=== PATIENT | female | born 1980 | race Caucasian/White ===

== ENCOUNTER 2016-11-26 18:30 | Emergency (ER) | payer BC ==
[2016-11-26 18:35] VITALS: BP 144/86; BMI 32.1
--- NOTE | 2016-11-26 19:09 | DR.GENAD ---
HPI - PCP Primary Care Physician: WILMA - Complaint/Symptoms Chief Complaint Doctors Comments: History as stated. Pain sever, sharp onset one week ago, nont aggravated by movement. Denies history of reflux Chief Complaint:: PT C/O CHEST TIGHTNESS. PT STATES SHE HAS BEEN HAVING CHEST PAINS ON AND OFF FOR A BIT BUT TODAY THE PAIN JUST GOT WORSE - Source History Provided: Patient - Mode of Arrival Mode of Arrival: Ambulatory - Timing Onset of Chief Complaint: 11/26/16 PMH - PMH Past Medical History: No Past Surgical History: Yes Surgical History: Cholecystectomy Past Surgical History Comment: TUBALIGATION - Family History History of Family Medical Conditions: No - Social History Does any household member use tobacco: Yes Alcohol Use: None Do you use any recreational Drugs:: No Lives With: Family Lives Where: Home - infectious screening In the last 2 months have you had wt loss of >10#?: NO Have you had fever, night sweats or hemotysis?: No Have you traveled outside the country in the last 6 months?: No Isolation: Standard ROS - Review of Systems Constitutional: No Symptoms Reported Eyes: No Symptoms Reported ENTM: No Symptoms Reported Respiratoy: No Symptoms Reported Cardiovascular: No Symptoms Reported Gastrointestinal/Abdominal: No Symptoms Reported Genitourinary: No Symptoms Reported Neurological: No Symptoms Reported Musculoskeletal: Chest wall Integumentary: No Symptoms Reported Hematologic/Lymphatic: No Symptoms Reported, See HPI Endocrine: No Symptoms Reported Psychiatric: No Symptoms Reported All Other Systems: Reviewed and Negative PE - Vital Signs Vitals: Temperature 98.3 F Pulse Rate 92 Respiratory Rate 20 Blood Pressure 144/86 O2 Sat by Pulse Oximetry 97 - General Limitations: No Limitations General Appearance: Alert, Anxious - Head Head Exam: Normal Inspection, Atraumatic - Eyes Eye exam: Normal Appearance, PERRL, EOMI - ENT ENT Exam: Normal Exam External Ear Exam: Normal External Inspection TM/Canal Exam: Bilateral Normal Nose Exam: Normal Nose Exam Mouth Exam: Normal Inspection Throat Exam: Normal Inspection - Neck Neck Exam: Normal Inspection, Full ROM - Chest Chest Inspection: Normal Inspection - Respiratory Respiratory Exam: Normal Lung Sounds Bilat Respiratory Exam: Bilateral Clear to Auscultation - Cardiovascular Cardiovascular Exam: Regular Rate, Normal Rhythm - Abdominal Exam Abdominal Exam: Normal Inspection Abdominal Tenderness: negative: RUQ, RLQ, LUQ, LLQ, Epigastrium, Suprapubic, Diffuse, Mild, Moderate, Severe, Other - Extremities Extremities Exam: Normal Inspection, Full ROM - Back Back Exam: Normal Inspection, Full ROM - Neurologic Neurological Exam: Alert, Oriented X3, CN II-XII Intact - Psychiatric Psychiatric Exam: Normal Affect - Skin Skin Exam: Warm, Dry, Intact Course - Reevaluation 1st: Unchanged ROR - Labs Reviewed Result Diagrams: 11/26/16 19:18 11/26/16 19:18 Laboratory: WBC 16.8 X10^3/uL (3.6-10.0) H 11/26/16 19:18 RBC 4.20 X10^6/uL (3.5-5.4) 11/26/16 19:18 Hgb 12.7 g/dL (12.0-16.0) 11/26/16 19:18 Hct 38.8 % (36.0-47.0) 11/26/16 19:18 MCV 92.3 fL (80.0-100.0) 11/26/16 19:18 MCH 30.2 pg (27.0-34.0) 11/26/16 19:18 MCHC 32.8 g/dL (33.0-35.0) L 11/26/16 19:18 RDW 13.8 % (11.6-16.5) 11/26/16 19:18 Plt Count 407 X10^3/uL (150.0-450.0) 11/26/16 19:18 MPV 7.7 fL (7.4-11.0) 11/26/16 19:18 Neut % 77.2 % (42.0-75.0) H 11/26/16 19:18 Lymph % 14.3 % (21.0-51.0) L 11/26/16 19:18 Eddy % 6.6 % (0.0-13.0) 11/26/16 19:18 Eos % 1.2 % (0.9-2.9) 11/26/16 19:18 Baso % 0.7 % (0.2-1.0) 11/26/16 19:18 Neut # 13.0 x10^3/uL (2.2-4.8) H 11/26/16 19:18 Lymph # 2.4 X10^3/uL (1.3-2.9) 11/26/16 19:18 Eddy # 1.1 x10^3/uL (0.3-0.8) H 11/26/16 19:18 Eos # 0.2 x10^3/uL (0.0-0.2) 11/26/16 19:18 Baso # 0.1 X10^3/uL (0.0-0.1) 11/26/16 19:18 Absolute Nucleated RBC 0.0 /100WBC 11/26/16 19:18 Sodium 143 mmol/L (136-145) 11/26/16 19:18 Corrected Sodium TNP 11/26/16 19:18 Potassium 3.7 mmol/L (3.5-5.1) 11/26/16 19:18 Chloride 108 mmol/L (98-107) H 11/26/16 19:18 Carbon Dioxide 24.1 mmol/L (21-32) 11/26/16 19:18 BUN 11 mg/dL (7-18) 11/26/16 19:18 Creatinine 0.79 mg/dL (0.55-1.02) 11/26/16 19:18 Est GFR (MDRD) Af Amer > 60 (>60) 11/26/16 19:18 Est GFR (MDRD) Non-Af > 60 (>60) 11/26/16 19:18 Glucose 96 mg/dL (65-99) 11/26/16 19:18 Calcium 8.6 mg/dL (8.5-10.1) 11/26/16 19:18 Corrected Calcium TNP 11/26/16 19:18 Phosphorus 3.5 mg/dL (2.6-4.7) 11/26/16 19:18 Magnesium 2.0 mg/dL (1.7-2.9) 11/26/16 19:18 Total Bilirubin 0.40 mg/dL (0.2-1.0) 11/26/16 19:18 AST 12 Units/L (15-37) L 11/26/16 19:18 ALT 20 Units/L (12-78) 11/26/16 19:18 Alkaline Phosphatase 84 Units/L (46-116) 11/26/16 19:18 Creatine Kinase 31 Units/L (26-192) 11/26/16 19:18 CK-MB (CK-2) < 1.0 ng/mL (0-4.0) 11/26/16 19:18 CK/CKMB % Calc 3.2 % (<4) 11/26/16 19:18 Troponin I < 0.02 ng/mL (0-1.5) 11/26/16 19:18 C-Reactive Protein 4.60 mg/L (0-3.0) H 11/26/16 19:18 Total Protein 7.1 g/dL (6.4-8.2) 11/26/16 19:18 Albumin 3.6 g/dL (3.4-5.0) 11/26/16 19:18 Globulin 3.5 g/dL (2.5-4.5) 11/26/16 19:18 Albumin/Globulin Ratio 1.0 Ratio (1.1-2.1) L 11/26/16 19:18 H. pylori IgG Antibody Negative (NEGATIVE) 11/26/16 19:18 - XRAY XRAY Interpreted by: Radiologist (Chest: negative) - Diagnosis Discharge Problem: Chest pain Qualifiers: Chest pain type: unspecified Qualified Code(s): R07.9 - Chest pain, unspecified - Discharge Plan Condition: Stable - Follow ups/Referrals Follow ups/Referrals: SUZI DILLON [Primary Care Provider] - 3 days - Instructions
[2016-11-26 19:25] LABS: BASOPHILS # (AUTO) 0.1 X10^3/uL (0.0-0.1); BASOPHILS % (AUTO) 0.7 % (0.2-1.0); EOSINOPHILS # (AUTO) 0.2 x10^3/uL (0.0-0.2); EOSINOPHILS % (AUTO) 1.2 % (0.9-2.9); HEMATOCRIT 38.8 % (36.0-47.0); HEMOGLOBIN 12.7 g/dL (12.0-16.0); LYMPHOCYTES # (AUTO) 2.4 X10^3/uL (1.3-2.9); LYMPHOCYTES % (AUTO) 14.3 % (21.0-51.0); MEAN CORPUSCULAR HEMOGLOBIN 30.2 pg (27.0-34.0); MEAN CORPUSCULAR HGB CONC 32.8 g/dL (33.0-35.0); MEAN CORPUSCULAR VOLUME 92.3 fL (80.0-100.0); MEAN PLATELET VOLUME 7.7 fL (7.4-11.0); MONOCYTES # (AUTO) 1.1 x10^3/uL (0.3-0.8); MONOCYTES % (AUTO) 6.6 % (0.0-13.0); NEUTROPHILS % (AUTO) 77.2 % (42.0-75.0); PLATELET COUNT 407 X10^3/uL (150.0-450.0); RED CELL DISTRIBUTION WIDTH 13.8 % (11.6-16.5); WHITE BLOOD COUNT 16.8 X10^3/uL (3.6-10.0)
[2016-11-26 19:49] LABS: BLOOD UREA NITROGEN 11 mg/dL (7-18); CALCIUM 8.6 mg/dL (8.5-10.1); CARBON DIOXIDE 24.1 mmol/L (21-32); CHLORIDE 108 mmol/L (98-107); CREATININE 0.79 mg/dL (0.55-1.02); GLUCOSE 96 mg/dL (65-99); SODIUM 143 mmol/L (136-145); TROPONIN I < 0.02 ng/mL (0-1.5); eGFR BLACK RACES > 60 (>60); eGFR NON BLACK RACES > 60 (>60)
[2016-11-26 19:53] LABS: ALANINE AMINOTRANSFERASE 20 Units/L (12-78); ALBUMIN 3.6 g/dL (3.4-5.0); ALKALINE PHOSPHATASE 84 Units/L (46-116); ASPARTATE AMINO TRANSFERASE 12 Units/L (15-37); CKMB % 3.2 % (<4); CREATINE KINASE 31 Units/L (26-192); CREATINE KINASE MB < 1.0 ng/mL (0-4.0); PHOSPHORUS 3.5 mg/dL (2.6-4.7); TOTAL PROTEIN 7.1 g/dL (6.4-8.2)
[2016-11-26] MEDS ORDERED: NS 1000 ML 1,000 ML IV SCH (20:00)
--- NOTE | 2016-11-26 20:19 | RAD ---
EXAM: Chest X-ray INDICATION: Chest pain COMPARISION: No prior TECHNIQUE: AP, single view FINDINGS: The lungs are clear in the lung volumes are within normal limits. No pleural effusion or pneumothora x. The cardiac silhouette and mediastinum are normal. The regional skeleton is intact. IMPRESSION: Normal Chest X-Ray Reported By:
[2016-11-26] MEDS ORDERED: NS 1000 ML 1,000 ML ONE (21:05)
== END 2016-11-26 22:19 | disposition home or self-care (01) ==
LOC: ER 18:40
DX: R07.89 Other chest pain (principal)
CPT/HCPCS: 36415; 71010; 80053; 82550; 82553; 83735; 84100; 84484; 85025; 86140; 86677; 93005; 93010; 96365; 99283; A4222

== ENCOUNTER 2017-09-05 04:30 | Inpatient (IN) | payer BC ==
[2017-09-05] MEDS ORDERED: ZOFRAN INJ 4 MG VIAL IVP ONE (05:16)
[2017-09-05] MEDS ORDERED: NS 1000 ML 1,000 ML IV ONE ×2 (05:16→07:35)
[2017-09-05] MEDS ORDERED: PEPCID 20 MG IV PREMIX* 20 MG/50 ML BAG IV ONE ×2 (05:16→05:26)
[2017-09-05] MEDS ORDERED: NS 1000 ML 1,000 ML ONE (05:17)
[2017-09-05] MEDS ORDERED: DEMEROL INJ IVP ONE (05:17)
--- NOTE | 2017-09-05 05:18 | DR.GENAD ---
HPI - PCP Primary Care Physician: nfd - HPI Comment HPI Comment: TONIGHT ANTER MIDNIGHT PAIN STARTED AGAIN. IT WAS MORE SEVERE. NAUSEATED AND VOMITED SEVERAL TIMES. NO FEVER OR DYSURIA. - Complaint/Symptoms Chief Complaint Doctors Comments: EPIGASTRIC PAIN INTERMITTENTLY SINCE LAST MONDAY. Chief Complaint:: pt c/o epigastric pain that radiates under rt breast nausea and vomiting x 3 times - Nurses notes reviewed Nurses Notes Review: Yes - Source History Provided: Patient - Mode of Arrival Mode of Arrival: Ambulatory - Timing Onset of Chief Complaint: 09/04/17 Came on: Suddenly - Duration Duration: Constant (TONIGHT) Duration: Days - Severity Severity: Moderate PMH - PMH Past Medical History: No Past Surgical History: Yes Surgical History: Cholecystectomy, [employer] Surgery Past Surgical History Comment: TUBAL - Family History History of Family Medical Conditions: Yes Family Medical History: Coronary Artery Disease, Heart Failure - Social History Does patient currently use any type of tobacco product: No Have you used tobacco products in the last 12 months: Yes (2 WEEKS) Does any household member use tobacco: No Do you use any recreational Drugs:: No Lives With: Family Lives Where: Home - infectious screening In the last 2 months have you had wt loss of >10#?: NO Have you had fever, night sweats or hemotysis?: No Have you traveled outside the country in the last 6 months?: No Isolation: Standard ROS - Review of Systems Constitutional: Weakness, Fatigue, Loss of Appetite. negative: Chills, Fever Eyes: negative: Eye Pain, Discharge ENTM: negative: Ear Pain, Nose Pain, Nose Congestion, Throat Pain Respiratoy: negative: Productive Cough, Non-Productive Cough, Short of Breath, Wheezing, Hemoptysis Cardiovascular: negative: Chest Pain, Edema Gastrointestinal/Abdominal: Abdominal Pain, Nausea, Vomiting. negative: Diarrhea Genitourinary: negative: Dysuria, Frequency, Hematuria Neurological: Weakness Musculoskeletal: No Symptoms Reported Integumentary: No Symptoms Reported Hematologic/Lymphatic: No Symptoms Reported Endocrine: No Symptoms Reported All Other Systems: Reviewed and Negative PE - Vital Signs Vitals: Temperature 99 F Pulse Rate 78 Respiratory Rate 20 Blood Pressure 137/77 O2 Sat by Pulse Oximetry 99 - General Limitations: No Limitations General Appearance: Alert - Head Head Exam: Normal Inspection - Eyes Eye exam: Normal Appearance - ENT ENT Exam: Normal External Ear Exam External Ear Exam: Normal External Inspection TM/Canal Exam: Bilateral Normal Nose Exam: Normal Nose Exam Mouth Exam: Normal Inspection Throat Exam: Normal Inspection - Neck Neck Exam: Trachea Midline - Chest Chest Inspection: Normal Inspection - Respiratory Respiratory Exam: Normal Lung Sounds Bilat Respiratory Exam: Bilateral Clear to Auscultation - Cardiovascular Cardiovascular Exam: Regular Rate, Normal Rhythm, Normal Heart Sounds - Abdominal Exam Abdominal Exam: Normal Bowel Sounds, Soft, Tenderness Abdominal Tenderness: Epigastrium, Moderate - Extremities Extremities Exam: Normal Inspection - Back Back Exam: Normal Inspection - Neurologic Neurological Exam: Alert, Oriented X3 - Psychiatric Psychiatric Exam: Normal Affect, Normal Mood - Skin Skin Exam: Normal Color MDM - Differential Diagnosis Differential Diagnosis: EPIGASTRIC PAIN, GADTRITIS, PANCREATITIS BOWELL OBSTRUCTION Course - Treatment Treatment: SEE ORDERS. - Education/Counseling Education/Counseling: Patient, Education Educated On: Treatment, Diagnosis, Needs for Follow Up ROR - Labs Reviewed Laboratory Results Reviewed?: Yes Result Diagrams: 09/05/17 05:17 09/05/17 05:17 Laboratory: Influenza Type A (PCR) Negative (NEGATIVE) 09/05/17 04:50 Influenza Type B (PCR) Negative (NEGATIVE) 09/05/17 04:50 Streptococcus Screen Negative (NEGATIVE) 09/05/17 04:50 - XRAY XRAY Interpreted by: Radiologist - Diagnosis Discharge Problem: Small bowel obstruction, H/O malignant neoplasm of glottis Abdominal pain Qualifiers: Abdominal location: generalized Qualified Code(s): R10.84 - Generalized abdominal pain Terminal ileitis of small intestine Qualifiers: Digestive disease complication type: without complication Qualified Code(s): K50.00 - Crohn's disease of small intestine without complications - Discharge Plan Disposition: ADMITTED INPATIENT Condition: Stable - Follow ups/Referrals - Instructions
[2017-09-05] MEDS ORDERED: DEMEROL INJ ONE (05:26)
[2017-09-05] MEDS ORDERED: ZOFRAN INJ 4 MG VIAL ONE (05:26)
[2017-09-05 05:30] LABS: BASOPHILS # (AUTO) 0.1 X10^3/uL (0.0-0.1); BASOPHILS % (AUTO) 0.6 % (0.2-1.0); EOSINOPHILS # (AUTO) 0.2 x10^3/uL (0.0-0.2); EOSINOPHILS % (AUTO) 1.3 % (0.9-2.9); HEMATOCRIT 37.1 % (36.0-47.0); HEMOGLOBIN 12.4 g/dL (12.0-16.0); LYMPHOCYTES # (AUTO) 1.4 X10^3/uL (1.3-2.9); LYMPHOCYTES % (AUTO) 10.3 % (21.0-51.0); MEAN CORPUSCULAR HEMOGLOBIN 30.5 pg (27.0-34.0); MEAN CORPUSCULAR HGB CONC 33.3 g/dL (33.0-35.0); MEAN CORPUSCULAR VOLUME 91.4 fL (80.0-100.0); MEAN PLATELET VOLUME 7.3 fL (7.4-11.0); MONOCYTES # (AUTO) 0.5 x10^3/uL (0.3-0.8); MONOCYTES % (AUTO) 3.9 % (0.0-13.0); NEUTROPHILS # (AUTO) 11.4 x10^3/uL (2.2-4.8); NEUTROPHILS % (AUTO) 83.9 % (42.0-75.0); PLATELET COUNT 483 X10^3/uL (150.0-450.0); RED BLOOD COUNT 4.06 X10^6/uL (3.5-5.4); RED CELL DISTRIBUTION WIDTH 13.1 % (11.6-16.5); WHITE BLOOD COUNT 13.6 X10^3/uL (3.6-10.0)
[2017-09-05 05:40] LABS: ALANINE AMINOTRANSFERASE 20 Units/L (12-78); ALBUMIN 3.4 g/dL (3.4-5.0); ALKALINE PHOSPHATASE 91 Units/L (46-116); AMYLASE 48 Units/L (25-115); ASPARTATE AMINO TRANSFERASE 13 Units/L (15-37); BLOOD UREA NITROGEN 9 mg/dL (7-18); CALCIUM 8.7 mg/dL (8.5-10.1); CARBON DIOXIDE 26.8 mmol/L (21-32); CHLORIDE 106 mmol/L (98-107); CREATININE 0.85 mg/dL (0.55-1.02); LIPASE 112 Units/L (73-393); SODIUM 141 mmol/L (136-145); eGFR BLACK RACES > 60 (>60); eGFR NON BLACK RACES > 60 (>60)
--- NOTE | 2017-09-05 06:11 | CT ---
CT abdomen and pelvis without contrast Indication: Abdominal and epigastric pain with nausea and vomiting Comparison: 07/01/2012 Technique: Multiple axial images of the abdomen and pelvis were obtained from the lung bases to the pubic symphy sis without the administration of IV contrast. Findings: The visualized portions of the lung bases are unremarkable. The bony structures are grossly intact. Given the limitations of lack of IV contrast administration the liver, spleen, pancreas, and adrenal glands are unremarkable in their CT appearance. Previous cholecystectomy is noted. No evidence of stone within either kidney or ureter. No hydronephrosis is identified. There is a small sliding hiatal hernia with moderate focal thickening of the anterior wall of the dis jessica esophagus seen on axial image 11. There is mural stratification and fat deposition within the ter cullen ileum submucosa, just proximal to the terminal ileum there is fairly severe bowel wall thickeni ng with small amount of surrounding inflammatory change. There is fecalization of bowel contents for example on coronal image 16 within the distal ileum with proximal dilatation of the small bowel. No f ree air or pneumatosis. The rectum is unremarkable. A few diverticula are noted within distal colon o therwise the distal colon is collapsed. The appendix is normal. No pelvic or adnexal mass. Small amou nt of pelvic free fluid. Abdominal aorta is normal in caliber. No acute osseous abnormality. IMPRESSION: 1. Intermediate-grade distal small bowel obstruction. The obstruction is secondary to fairly severe i nflammation within the distal ileum just proximal to the terminal ileum. Differential considerations include both infectious inflammatory etiologies with Crohn's disease or infectious terminal ileitis b eing the most likely considerations. There appears to be mucosal stratification and submucosal fat de position within the cecum and terminal ileum suggesting sequela of prior episodes of colonic and smal l bowel inflammation again increasing the concern for a chronic inflammatory bowel disease. 2. Moderate asymmetric thickening of the distal esophagus with a small sliding hiatal hernia potentia lly represents esophagitis in the setting of gastroesophageal reflux disease; however given the asymm etric thickening clinical correlation and potentially EGD may be indicated for further evaluation and exclusion of underlying distal esophageal mass. Reported By:
[2017-09-05] MEDS ORDERED: FLAGYL IV PREMIX 500 MG BAG 500 MG/100 ML BAG IV ONE (07:35)
[2017-09-05] MEDS ORDERED: TYLENOL 325 MG TAB PO PRN (07:48)
[2017-09-05] MEDS ORDERED: DEMEROL INJ IVP SCH (08:00)
[2017-09-05] MEDS: PEPCID 20 MG IV PREMIX* 20 MG/50 ML BAG IV SCH ×2 (08:49→21:15)
[2017-09-05] MEDS ORDERED: NS 1000 ML 1,000 ML IV SCH (09:00)
[2017-09-05] MEDS ORDERED: NS 100 ML IV + SPIKE MINIBAG* 200 ML IV ONE (09:02)
[2017-09-05] MEDS: ZOSYN VIAL 3.375 GM IV SCH ×2 (09:18→14:17)
[2017-09-05] MEDS: NS 1000 ML 1,000 ML IV SCH ×3 (09:31→18:36)
[2017-09-05 10:11] VITALS: BMI 33.6
--- NOTE | 2017-09-05 10:56 | DR.CONSULT ---
Consult - Consultation for Day of: Date: 09/05/17 - Chief Complaint Chief Complaint: Patient is a 37yo female who was referred for abnormal CT imaging, nausea and vomting. Patient with complaints of dysphagia, dyspepsia, nausea, vomiting, epigastric pain. - Allergies Allergies/Adverse Reactions: Allergies Allergy/AdvReac Type Severity Reaction Status Date / Time No Known Drug Allergies Allergy Verified 09/05/17 04:36 - History of Present Illness History of Present Illness: Patient is a 37yo female who was referred for abnormal CT imaging, nausea and vomting. Patient with complaints of dysphagia, dyspepsia, nausea, vomiting, epigastric pain. Last vomited 2am. She denies constipation, diarrhea, melena and hemtochezia. Last BM was last night. Abdomen and pelvis CT showed intermediate grade distal small bowel obsruction secondary to fairly severe inflammation within the distal ileum just proximal to the terminal ileum, moderate asymetric thickening of the distal esophagus and sliding hiatal hernia. Patient states she takes omeprazole 20mg daily for GERD. She has never had a colonoscopy or EGD. - Past Medical History Past Medical History: GERD - Past Surgical History Surgical History: Cholecystectomy, MEAL ATTENDANT Surgery (tubal ligation) - Family History Family Medical History: Coronary Artery Disease, Heart Failure - Social History Does patient currently use any type of tobacco product: No Have you used tobacco products in the last 12 months: Yes (2 WEEKS) Does any household member use tobacco: No Alcohol Use: None Drug Use: None - Medications Home Medications: Cetirizine HCl [Zyrtec Tab 10 mg] 10 mg PO DAILY 09/05/17 [History Confirmed ] Omeprazole [PRILOSEC 20 MG *] 20 mg PO DAILY 09/05/17 [History Confirmed ] - Review of Systems Constitutional: No Symptoms Reported Eyes: No Symptoms Reported ENT: No Symptoms Reported Respiratory: No Symptoms Reported Cardiovascular: No Symptoms Reported Gastrointestinal: See HPI, Nausea, Vomiting, Abdominal Pain (epigastric), Other (dysphagia, dyspepsia). denies: Diarrhea, Constipation, Melena, Hematochezia Genitourinary: No Symptoms Reported Musculoskeletal: No Symptoms Reported Skin: No Symptoms Reported Neurological: No Symptoms Reported - Physical Exam Vital Signs: Temperature 98.0 F Pulse Rate [Left Radial] 70 Pulse Rate 78 Respiratory Rate 18 Blood Pressure [Right Arm] 120/76 Blood Pressure 137/77 O2 Sat by Pulse Oximetry 100 Oriented: Normal Eyes: Normal Ear: Normal Nose: Normal Throat: Normal Respiratory: Clear Throughout Cardiovascular: Normal Auscultation: Bowel Sounds: Normal Palpation: Normal (no distention). negative: Spleen Enlarged, Liver Enlarged, Mass Pulsatile Tenderness: Diffuse Skin: Normal Musculoskeletal: Normal Psychiatric: Normal Mood Description: Calm Affect: Normal - Plan Plan: Assessment. 1. Nausea, vomiting, dysphagia, dyspepsia, abnormal CT imaging r/o esophageal ulcer, esophageal carcinoma, gastric ulcer. Plan. 1. Protonix IV, EGD today. Plan reviewed with Dr. Mclain
[2017-09-05] MEDS: SOLU-Medrol 40 MG VIAL IVP SCH ×3 (11:58→21:15)
[2017-09-05] MEDS ORDERED: NS 500 ML IV 500 ML IV ONE (12:01)
[2017-09-05] MEDS ORDERED: DIPRIVAN VIAL 20 ML ONE (12:16)
[2017-09-05] MEDS ORDERED: XYLOCAINE 2 % (PLAIN) ONE (12:16)
[2017-09-05] MEDS: FLAGYL IV PREMIX 500 MG BAG 500 MG/100 ML BAG IV SCH ×2 (13:20→21:15)
[2017-09-05] MEDS: DEMEROL INJ IVP PRN ×2 (14:41→19:21)
[2017-09-05] MEDS: ZOSYN VIAL 3.375 GM 3.375 GM in NS 100 ML IV + SPIKE MINIBAG* 100 ML IV SCH ×2 (14:41→21:15)
[2017-09-05] MEDS ORDERED: BENADRYL CAP/TAB 25 MG PO STA (14:46)
[2017-09-05] MEDS: PROTONIX TAB 40 MG PO SCH ×2 (15:13→21:15)
[2017-09-05] MEDS ORDERED: BENADRYL CAP/TAB 25 MG PO ONE (15:19)
[2017-09-06] MEDS: NS 1000 ML 1,000 ML IV SCH ×3 (01:16→17:36)
[2017-09-06] MEDS: ZOSYN VIAL 3.375 GM 3.375 GM in NS 100 ML IV + SPIKE MINIBAG* 100 ML IV SCH ×3 (05:01→20:59)
[2017-09-06] MEDS: SOLU-Medrol 40 MG VIAL IVP SCH (05:01)
[2017-09-06] MEDS: FLAGYL IV PREMIX 500 MG BAG 500 MG/100 ML BAG IV SCH ×3 (05:01→20:59)
[2017-09-06 06:38] LABS: BASOPHILS % (AUTO) 0.1 % (0.2-1.0); HEMATOCRIT 31.8 % (36.0-47.0); HEMOGLOBIN 10.9 g/dL (12.0-16.0); LYMPHOCYTES # (AUTO) 0.9 X10^3/uL (1.3-2.9); LYMPHOCYTES % (AUTO) 6.5 % (21.0-51.0); MEAN CORPUSCULAR HEMOGLOBIN 31.1 pg (27.0-34.0); MEAN CORPUSCULAR HGB CONC 34.3 g/dL (33.0-35.0); MEAN CORPUSCULAR VOLUME 90.9 fL (80.0-100.0); MEAN PLATELET VOLUME 7.8 fL (7.4-11.0); MONOCYTES # (AUTO) 0.1 x10^3/uL (0.3-0.8); NEUTROPHILS # (AUTO) 12.8 x10^3/uL (2.2-4.8); NEUTROPHILS % (AUTO) 92.4 % (42.0-75.0); PLATELET COUNT 384 X10^3/uL (150.0-450.0); RED CELL DISTRIBUTION WIDTH 13.3 % (11.6-16.5); WHITE BLOOD COUNT 13.8 X10^3/uL (3.6-10.0)
[2017-09-06] MEDS: DEMEROL INJ IVP PRN ×3 (06:53→19:35)
--- NOTE | 2017-09-06 07:14 | RAD ---
HISTORY: Abdominal pain in the epigastric region with nausea and vomiting. Study: KUB Comparison: Abdomen CT done 09/05/2017. Findings: Mild right-sided gaseous distention of small bowel loops is present. Overall, the pattern has improve d compared to the prior CT. There is present throughout the colon including the rectum. There surgica l clips from cholecystectomy. No opaque stone is seen. Osseous structures are intact. IMPRESSION: Interval improvement with reduction in gaseous distention of small bowel loops now confined to the ri ght abdomen. Findings favor a resolving partial small bowel obstruction versus ileus. Reported By:
[2017-09-06 07:21] LABS: ALANINE AMINOTRANSFERASE 17 Units/L (12-78); ALBUMIN 2.7 g/dL (3.4-5.0); ALKALINE PHOSPHATASE 80 Units/L (46-116); ASPARTATE AMINO TRANSFERASE 10 Units/L (15-37); BLOOD UREA NITROGEN 8 mg/dL (7-18); CALCIUM 8.1 mg/dL (8.5-10.1); CARBON DIOXIDE 22.5 mmol/L (21-32); CHLORIDE 110 mmol/L (98-107); COR CA(FOR HYPOALB) 9.1 mg/dL (8.5-10.1); COR NA(FOR HYPERGLY) 141 mmol/L (136-145); CREATININE 0.63 mg/dL (0.55-1.02); SODIUM 141 mmol/L (136-145); eGFR BLACK RACES > 60 (>60); eGFR NON BLACK RACES > 60 (>60)
[2017-09-06 07:51] LABS: PLATELET MORPHOLOGY COMMENT NORMAL (NORMAL)
[2017-09-06 07:52] LABS: ERYTHROCYTE SEDIMENTATION RATE 17 MM/HOUR (0-20)
[2017-09-06] MEDS: PEPCID 20 MG IV PREMIX* 20 MG/50 ML BAG IV SCH ×2 (08:30→20:59)
[2017-09-06] MEDS: PROTONIX TAB 40 MG PO SCH ×2 (08:30→21:00)
--- NOTE | 2017-09-06 11:40 | DR.H&P ---
H&P - History & Physical for Day of: H&P Date: 09/05/17 - Chief Complaint Chief Complaint: abdominal pain - Allergies Allergies/Adverse Reactions: Allergies Allergy/AdvReac Type Severity Reaction Status Date / Time No Known Drug Allergies Allergy Verified 09/05/17 04:36 - History of Present Illness History of Present Illness: is a 37 year old white female who presented to the emergency room with reports of epigastric abdominal pain that started one week ago. She began with nausea and vomiting last night. Patient reports that pain starts in epigastric area and radiates under right breast. Associated symptoms include weakness, fatigue and loss of appetite. She denies fever or dysuria. Current medical history includes GERD. On examination, heart is regular in rate and rhythm. Bilateral lungs are noted to be clear to auscultation. Abdomen is round, soft, and noted with moderate epigastric tenderness on palpation. There is normal range of motion noted to all extremities. On arrival to the ER, vitals were 99, 78, 20, 99% RA, 137/77. Labs were obtained. Abnormal lab values include the following: WBC 13.6, Plt Count 483, MPV 7.3, Neut% 83.9, Lymph% 10.3, Neut# 11.4, AST 13, A/G Ratio 0.9. Strep screen is negative. Throat Culture Pending. An Abd/Pelvis CT was obtained and reported Intermediate-grade distal small bowel obstruction. The obstruction is secondary to fairly severe inflammation within the distal ileum just proximal to the terminal ileum. Differential considerations include both infectious inflammatory etiologies with Crohn's disease or infectious terminal ileitis being the most likely considerations. There appears to be mucosal stratification and submucosal fat deposition within the cecum and terminal ileum suggesting sequela of prior episodes of colonic and small bowel inflammation again increasing the concern for a chronic inflammatory bowel disease. Moderate asymmetric thickening of the distal esophagus with a small sliding hiatal hernia potentially represents esophagitis in the setting of gastroesophageal reflux disease; however given the asymmetric thickening clinical correlation and potentially EGD may be indicated for further evaluation and exclusion of underlying distal esophageal mass. Patient denies a history of Crohns disease. We admitted patient to the hospital for further treatment and evaluation. We consulted and for possible surgical intervention. Patient held NPO and will follow up with labs in the morning. - Past Medical History Past Medical History: GERD - Past Surgical History Surgical History: Cholecystectomy, [employer] Surgery (tubal ligation) - Family History Family Medical History: Coronary Artery Disease, Heart Failure - Social History Does patient currently use any type of tobacco product: No Have you used tobacco products in the last 12 months: No Type of Tobacco Use: None Does any household member use tobacco: No Alcohol Use: None Drug Use: None - Medications Home Medications: Cetirizine HCl [Zyrtec Tab 10 mg] 10 mg PO DAILY 09/05/17 [History Confirmed ] Omeprazole [PRILOSEC 20 MG *] 20 mg PO DAILY 09/05/17 [History Confirmed ] - Review of Systems Constitutional: See HPI, Weakness, Malaise, Other (loss of appetite) Eyes: No Symptoms Reported. denies: See HPI, Pain, Vision Change, Conjunctivae Inflammation, Eyelid Inflammation, Redness, Other ENT: No Symptoms Reported. denies: See HPI, Ear Pain, Ear Discharge, Nose Pain , Nose Discharge, Nose Congestion, Mouth Pain, Mouth Swelling, Throat Pain, Throat Swelling, Other Respiratory: No Symptoms Reported. denies: See HPI, Cough, Dry, Shortness of Breath, Hemoptysis, SOB with Excertion, Pleuritic Pain, Sputum, Wheezing, Other Gastrointestinal: See HPI, Nausea, Vomiting, Abdominal Pain. denies: Diarrhea, Constipation, Melena, Hematochezia Genitourinary: No Symptoms Reported. denies: Dysuria, Frequency, Incontinence, Hematuria, Retention Musculoskeletal: No Symptoms Reported. denies: Shoulder Pain, Arm Pain, Back Pain, Hand Pain, Leg Pain, Foot Pain, Neck Pain, Other Skin: No Symptoms Reported. denies: Rash, Lesions, Jaundice, Bruising, Wound, Ecchymosis, Other Neurological: Weakness - Physical Exam Vital Signs: Temperature 97.7 F Pulse Rate [Left Radial] 66 Pulse Rate 78 Respiratory Rate 16 Blood Pressure [Right Arm] 97/52 Blood Pressure 137/77 O2 Sat by Pulse Oximetry 95 Oriented: Normal Eyes: Normal. negative: Blurred Vision, Diplopia, Discharge, Pain, Redness, Photophobia, Other Ear: Normal. negative: Right, Left, Swelling, Ecchymosis, Hemotypanum, Abrasion , Laceration Nose: Normal Throat: Normal. negative: Tonsillar Hypertrophy, Red, Exudate, Dry, Other Respiratory: Clear Throughout Cardiovascular: Normal : Normal. negative: Dysuria, Hematuria, Frequency, Discharge, Bleeding, , Other Auscultation: Bowel Sounds: Increased Palpation: Normal Tenderness: Epigastric, Moderate. negative: Rebound, Guarding, Rigidity Skin: Normal Musculoskeletal: Normal Psychiatric: Normal Mood Description: Calm Affect: Normal Speech Pattern: Clear - Assessment/Plan (1) Abdominal pain Qualifiers: Abdominal location: epigastric Qualified Code(s): R10.13 - Epigastric pain Status: Acute Plan: demerol 25mg iv q4h prn pain, consult general surgery and GI, continue to monitor (2) Small bowel obstruction Status: Acute Plan: NPO, Consult general surgery and GI, flagyl 500mg iv q8h, zosyn 3.375gm iv tid, continue to monitor
[2017-09-06] MEDS ORDERED: DILAUDID INJ IVP PRN ×2 (12:51→14:44)
[2017-09-06] MEDS ORDERED: SOLU-Medrol 125 MG VIAL ONE (12:59)
[2017-09-06] MEDS ORDERED: ZOSYN VIAL 3.375 GM IV ONE (12:59)
[2017-09-06] MEDS ORDERED: FLAGYL IV PREMIX 500 MG BAG 500 MG/100 ML BAG IV ONE (12:59)
[2017-09-06] MEDS ORDERED: DILAUDID INJ ONE ×2 (12:59→14:50)
[2017-09-06] MEDS ORDERED: NS 100 ML IV + SPIKE MINIBAG* 100 ML IV ONE (13:00)
[2017-09-06] MEDS: ZyrTEC TAB 10 MG PO SCH (13:22)
[2017-09-06] MEDS: SOLU-Medrol 125 MG VIAL IVP SCH ×2 (13:22→20:59)
--- NOTE | 2017-09-06 14:02 | PCM.PROG ---
Progress Note - Progress Note for Day of Date: 09/06/17 - Subjective Subjective: was doing better this am ,then started to have severe crampy mid abdominal pain after advancing her diet .. WBC still high with Lt shift , Sed Rate is slightly high 20 .C reactive pro high 12.3.. having low grade fever . abdominal xray : improved SBO. - Past Medical Family Social History Past Med/Fam/Surg Hx: Changes noted (describe) (h/o chron<disease in the family , father side ) Allergies: Allergies No Known Drug Allergies Allergy (Verified 09/05/17 04:36) - Vital Signs and I&O's Vital Signs: Temperature 99.1 F Pulse Rate [Left Radial] 79 Pulse Rate 78 Respiratory Rate 18 Blood Pressure [Right Arm] 118/56 Blood Pressure 137/77 O2 Sat by Pulse Oximetry 98 Intake and Output: Intake & Output 09/04/17 09/05/17 09/06/17 09/07/17 11:59 11:59 11:59 11:59 Intake Total 2360 240 Output Total 1 1 Balance 2359 239 - Physical Exam Oriented: Normal Eyes: Normal. negative: Blurred Vision, Diplopia, Discharge, Pain, Redness, Photophobia, Other Ear: Normal. negative: Right, Left, Swelling, Ecchymosis, Hemotypanum, Abrasion , Laceration Nose: Normal Throat: Normal. negative: Tonsillar Hypertrophy, Red, Exudate, Dry, Other Cardiovascular: Normal : Normal. negative: Dysuria, Hematuria, Frequency, Discharge, Bleeding, , Other Auscultation: Bowel Sounds: Increased Tenderness: Epigastric, Moderate. negative: Rebound, Guarding, Rigidity Skin: Normal Musculoskeletal: Normal Psychiatric: Normal Mood Description: Calm Affect: Normal Speech Pattern: Clear - Laboratory and Diagnostics Result Diagrams: 09/06/17 05:42 09/06/17 05:42 Labs: 09/05/17 04:50 Throat Throat Culture - Preliminary Laboratory WBC 13.8 X10^3/uL (3.6-10.0) H 09/06/17 05:42 RBC 3.50 X10^6/uL (3.5-5.4) 09/06/17 05:42 Hgb 10.9 g/dL (12.0-16.0) L 09/06/17 05:42 Hct 31.8 % (36.0-47.0) L 09/06/17 05:42 MCV 90.9 fL (80.0-100.0) 09/06/17 05:42 MCH 31.1 pg (27.0-34.0) 09/06/17 05:42 MCHC 34.3 g/dL (33.0-35.0) 09/06/17 05:42 RDW 13.3 % (11.6-16.5) 09/06/17 05:42 Plt Count 384 X10^3/uL (150.0-450.0) 09/06/17 05:42 Plt Count Comment Adequate (ADEQUATE) 09/06/17 05:42 MPV 7.8 fL (7.4-11.0) 09/06/17 05:42 Neut % 92.4 % (42.0-75.0) H 09/06/17 05:42 Lymph % 6.5 % (21.0-51.0) L 09/06/17 05:42 [place] % 1.0 % (0.0-13.0) 09/06/17 05:42 Eos % 0.0 % (0.9-2.9) L 09/06/17 05:42 Baso % 0.1 % (0.2-1.0) L 09/06/17 05:42 Neut # 12.8 x10^3/uL (2.2-4.8) H 09/06/17 05:42 Lymph # 0.9 X10^3/uL (1.3-2.9) L 09/06/17 05:42 [place] # 0.1 x10^3/uL (0.3-0.8) L 09/06/17 05:42 Eos # 0.0 x10^3/uL (0.0-0.2) 09/06/17 05:42 Baso # 0.0 X10^3/uL (0.0-0.1) 09/06/17 05:42 Absolute Nucleated RBC 0.1 /100WBC 09/06/17 05:42 Total Counted 100 09/06/17 05:42 Neutrophils % (Manual) 94 % (39-76) H 09/06/17 05:42 Lymphocytes % (Manual) 5 % (13-43) L 09/06/17 05:42 Monocytes % (Manual) 1 % (4-9) L 09/06/17 05:42 Plt Morphology Comment Normal (NORMAL) 09/06/17 05:42 RBC Morphology Normal (NORMAL) 09/06/17 05:42 ESR 17 MM/HOUR (0-20) 09/06/17 05:42 Sodium 141 mmol/L (136-145) 09/06/17 05:42 Corrected Sodium 141 mmol/L (136-145) 09/06/17 05:42 Potassium 3.7 mmol/L (3.5-5.1) 09/06/17 05:42 Chloride 110 mmol/L (98-107) H 09/06/17 05:42 Carbon Dioxide 22.5 mmol/L (21-32) 09/06/17 05:42 BUN 8 mg/dL (7-18) 09/06/17 05:42 Creatinine 0.63 mg/dL (0.55-1.02) 09/06/17 05:42 Est GFR (MDRD) Af Amer > 60 (>60) 09/06/17 05:42 Est GFR (MDRD) Non-Af > 60 (>60) 09/06/17 05:42 Glucose 118 mg/dL (65-99) H 09/06/17 05:42 Calcium 8.1 mg/dL (8.5-10.1) L 09/06/17 05:42 Corrected Calcium 9.1 mg/dL (8.5-10.1) 09/06/17 05:42 Total Bilirubin 0.30 mg/dL (0.2-1.0) 09/06/17 05:42 AST 10 Units/L (15-37) L 09/06/17 05:42 ALT 17 Units/L (12-78) 09/06/17 05:42 Alkaline Phosphatase 80 Units/L (46-116) 09/06/17 05:42 C-Reactive Protein 12.30 mg/L (0-3.0) H 09/06/17 05:42 Total Protein 6.0 g/dL (6.4-8.2) L 09/06/17 05:42 Albumin 2.7 g/dL (3.4-5.0) L 09/06/17 05:42 Globulin 3.3 g/dL (2.5-4.5) 09/06/17 05:42 Albumin/Globulin Ratio 0.8 Ratio (1.1-2.1) L 09/06/17 05:42 Amylase 48 Units/L (25-115) 09/05/17 05:17 Lipase 112 Units/L (73-393) 09/05/17 05:17 H. pylori IgG Antibody Negative (NEGATIVE) 09/05/17 05:17 Influenza Type A (PCR) Negative (NEGATIVE) 09/05/17 04:50 Influenza Type B (PCR) Negative (NEGATIVE) 09/05/17 04:50 Streptococcus Screen Negative (NEGATIVE) 09/05/17 04:50 Tissue Pathology To follow 09/05/17 14:23 - Plan (1) Partial small bowel obstruction Status: Acute Plan: will keep NPO for now ,. increase Solumedrol. repeat abdominal Xray in am. (2) Acute Crohn's disease with intestinal obstruction Status: Acute
[2017-09-06] MEDS: ZOFRAN INJ 4 MG VIAL IVP PRN (14:39)
[2017-09-06] MEDS ORDERED: BENADRYL CAP/TAB 25 MG PO STA (14:47)
--- NOTE | 2017-09-06 19:25 | RAD ---
HISTORY: Severe abdominal pain. Study: Acute abdominal series Comparison: KUB dated same day at 6:49 a.m. Findings: The trachea is midline. The cardiac silhouette is unremarkable. The lungs are clear without focal i nfiltrate or effusion. The bony thorax is unremarkable. Flat plate and upright evaluation of the abdomen demonstrates a nonspecific/nonobstructive bowel gas pattern with air and stool to the level of the rectum. No obvious free air. No pathological soft tis ayaka mass or calcification can be observed. The bony structures are grossly intact. IMPRESSION: 1. No acute cardiopulmonary disease. 2. No evidence for acute abdominal pathology identified. Reported By:
[2017-09-07] MEDS: NS 1000 ML 1,000 ML IV SCH ×3 (03:37→20:22)
[2017-09-07] MEDS: DEMEROL INJ IVP PRN ×4 (03:39→18:15)
[2017-09-07] MEDS: ZOSYN VIAL 3.375 GM 3.375 GM in NS 100 ML IV + SPIKE MINIBAG* 100 ML IV SCH ×3 (05:26→22:51)
[2017-09-07] MEDS: FLAGYL IV PREMIX 500 MG BAG 500 MG/100 ML BAG IV SCH ×3 (05:26→22:52)
[2017-09-07] MEDS: SOLU-Medrol 125 MG VIAL IVP SCH ×3 (05:26→22:51)
[2017-09-07 05:39] LABS: BASOPHILS % (AUTO) 0.1 % (0.2-1.0); HEMATOCRIT 30.6 % (36.0-47.0); HEMOGLOBIN 10.4 g/dL (12.0-16.0); LYMPHOCYTES % (AUTO) 6.3 % (21.0-51.0); MEAN CORPUSCULAR HEMOGLOBIN 31.1 pg (27.0-34.0); MEAN CORPUSCULAR HGB CONC 33.9 g/dL (33.0-35.0); MEAN CORPUSCULAR VOLUME 91.7 fL (80.0-100.0); MONOCYTES # (AUTO) 0.4 x10^3/uL (0.3-0.8); MONOCYTES % (AUTO) 2.4 % (0.0-13.0); NEUTROPHILS % (AUTO) 91.2 % (42.0-75.0); PLATELET COUNT 475 X10^3/uL (150.0-450.0); RED BLOOD COUNT 3.33 X10^6/uL (3.5-5.4); RED CELL DISTRIBUTION WIDTH 13.8 % (11.6-16.5); WHITE BLOOD COUNT 16.4 X10^3/uL (3.6-10.0)
[2017-09-07 05:45] LABS: ALANINE AMINOTRANSFERASE 20 Units/L (12-78); ALBUMIN 2.8 g/dL (3.4-5.0); ALKALINE PHOSPHATASE 67 Units/L (46-116); ASPARTATE AMINO TRANSFERASE 13 Units/L (15-37); BLOOD UREA NITROGEN 13 mg/dL (7-18); CALCIUM 8.2 mg/dL (8.5-10.1); CARBON DIOXIDE 22.1 mmol/L (21-32); CHLORIDE 112 mmol/L (98-107); COR CA(FOR HYPOALB) 9.2 mg/dL (8.5-10.1); COR NA(FOR HYPERGLY) 144 mmol/L (136-145); SODIUM 143 mmol/L (136-145); TOTAL PROTEIN 5.7 g/dL (6.4-8.2); eGFR BLACK RACES > 60 (>60); eGFR NON BLACK RACES > 60 (>60)
[2017-09-07 06:37] LABS: BAND NEUTROPHILS % 2 % (0-10); PLATELET MORPHOLOGY COMMENT NORMAL (NORMAL)
--- NOTE | 2017-09-07 07:02 | RAD ---
HISTORY: Abdominal pain, nausea, vomiting Study: KUB Comparison: 09/06/2017 Findings: The abdominal gas pattern is nonspecific and nonobstructive. No abnormal masses or abnormal calcifica tions are identified. IMPRESSION: Unremarkable KUB Reported By:
[2017-09-07] MEDS: PEPCID 20 MG IV PREMIX* 20 MG/50 ML BAG IV SCH ×2 (08:43→20:21)
[2017-09-07] MEDS: ZOFRAN INJ 4 MG VIAL IVP PRN (08:43)
[2017-09-07] MEDS: ZyrTEC TAB 10 MG PO SCH (08:44)
[2017-09-07] MEDS: PROTONIX TAB 40 MG PO SCH ×2 (08:45→21:03)
--- NOTE | 2017-09-07 11:08 | PCM.PROG ---
Progress Note - Progress Note for Day of Date: 09/07/17 - Subjective Subjective: doing better this am , still having crampy mid abdominal pain. WBC still high with Lt shift , Sed Rate is slightly high 20 .C reactive pro high 12.3.. no fever today. abdominal xray : resolving SBO. - Past Medical Family Social History Past Med/Fam/Surg Hx: Changes noted (describe) (h/o chron<disease in the family , father side ) Allergies: Allergies hydromorphone [From Dilaudid] Adverse Reaction (Verified 09/06/17 17:38) - Vital Signs and I&O's Vital Signs: Temperature 97.7 F Pulse Rate [Right Brachial] 62 Pulse Rate [Left Radial] 53 Pulse Rate 78 Respiratory Rate 20 Blood Pressure [Left Arm] 136/76 Blood Pressure [Right Arm] 115/67 Blood Pressure 137/77 O2 Sat by Pulse Oximetry 96 Intake and Output: Intake & Output 09/04/17 09/05/17 09/06/17 09/07/17 11:59 11:59 11:59 11:59 Intake Total 2360 2080 Output Total 1 4 Balance 2359 2076 - Physical Exam Oriented: Normal Eyes: Normal. negative: Blurred Vision, Diplopia, Discharge, Pain, Redness, Photophobia, Other Ear: Normal. negative: Right, Left, Swelling, Ecchymosis, Hemotypanum, Abrasion , Laceration Nose: Normal Throat: Normal. negative: Tonsillar Hypertrophy, Red, Exudate, Dry, Other Cardiovascular: Normal : Normal. negative: Dysuria, Hematuria, Frequency, Discharge, Bleeding, , Other Auscultation: Bowel Sounds: Increased Tenderness: Epigastric, Moderate. negative: Rebound, Guarding, Rigidity Skin: Normal Musculoskeletal: Normal Psychiatric: Normal Mood Description: Calm Affect: Normal Speech Pattern: Clear, Appropriate - Laboratory and Diagnostics Result Diagrams: 09/07/17 04:44 09/07/17 04:44 Labs: 09/05/17 04:50 Throat Throat Culture - Final Laboratory WBC 16.4 X10^3/uL (3.6-10.0) H 09/07/17 04:44 RBC 3.33 X10^6/uL (3.5-5.4) L 09/07/17 04:44 Hgb 10.4 g/dL (12.0-16.0) L 09/07/17 04:44 Hct 30.6 % (36.0-47.0) L 09/07/17 04:44 MCV 91.7 fL (80.0-100.0) 09/07/17 04:44 MCH 31.1 pg (27.0-34.0) 09/07/17 04:44 MCHC 33.9 g/dL (33.0-35.0) 09/07/17 04:44 RDW 13.8 % (11.6-16.5) 09/07/17 04:44 Plt Count 475 X10^3/uL (150.0-450.0) H 09/07/17 04:44 Plt Count Comment Adequate (ADEQUATE) 09/07/17 04:44 MPV 8.0 fL (7.4-11.0) 09/07/17 04:44 Neut % 91.2 % (42.0-75.0) H 09/07/17 04:44 Lymph % 6.3 % (21.0-51.0) L 09/07/17 04:44 [place] % 2.4 % (0.0-13.0) 09/07/17 04:44 Eos % 0.0 % (0.9-2.9) L 09/07/17 04:44 Baso % 0.1 % (0.2-1.0) L 09/07/17 04:44 Neut # 15.0 x10^3/uL (2.2-4.8) H 09/07/17 04:44 Lymph # 1.0 X10^3/uL (1.3-2.9) L 09/07/17 04:44 [place] # 0.4 x10^3/uL (0.3-0.8) 09/07/17 04:44 Eos # 0.0 x10^3/uL (0.0-0.2) 09/07/17 04:44 Baso # 0.0 X10^3/uL (0.0-0.1) 09/07/17 04:44 Absolute Nucleated RBC 0.0 /100WBC 09/07/17 04:44 Total Counted 100 09/07/17 04:44 Neutrophils % (Manual) 88 % (39-76) H 09/07/17 04:44 Band Neutrophils % 2 % (0-10) 09/07/17 04:44 Lymphocytes % (Manual) 10 % (13-43) L 09/07/17 04:44 Monocytes % (Manual) 1 % (4-9) L 09/06/17 05:42 Plt Morphology Comment Normal (NORMAL) 09/07/17 04:44 RBC Morphology Normal (NORMAL) 09/07/17 04:44 ESR 17 MM/HOUR (0-20) 09/06/17 05:42 Sodium 143 mmol/L (136-145) 09/07/17 04:44 Corrected Sodium 144 mmol/L (136-145) 09/07/17 04:44 Potassium 3.6 mmol/L (3.5-5.1) 09/07/17 04:44 Chloride 112 mmol/L (98-107) H 09/07/17 04:44 Carbon Dioxide 22.1 mmol/L (21-32) 09/07/17 04:44 BUN 13 mg/dL (7-18) 09/07/17 04:44 Creatinine 0.80 mg/dL (0.55-1.02) 09/07/17 04:44 Est GFR (MDRD) Af Amer > 60 (>60) 09/07/17 04:44 Est GFR (MDRD) Non-Af > 60 (>60) 09/07/17 04:44 Glucose 123 mg/dL (65-99) H 09/07/17 04:44 Calcium 8.2 mg/dL (8.5-10.1) L 09/07/17 04:44 Corrected Calcium 9.2 mg/dL (8.5-10.1) 09/07/17 04:44 Total Bilirubin 0.30 mg/dL (0.2-1.0) 09/07/17 04:44 AST 13 Units/L (15-37) L 09/07/17 04:44 ALT 20 Units/L (12-78) 09/07/17 04:44 Alkaline Phosphatase 67 Units/L (46-116) 09/07/17 04:44 C-Reactive Protein 12.30 mg/L (0-3.0) H 09/06/17 05:42 Total Protein 5.7 g/dL (6.4-8.2) L 09/07/17 04:44 Albumin 2.8 g/dL (3.4-5.0) L 09/07/17 04:44 Globulin 2.9 g/dL (2.5-4.5) 09/07/17 04:44 Albumin/Globulin Ratio 1.0 Ratio (1.1-2.1) L 09/07/17 04:44 Amylase 48 Units/L (25-115) 09/05/17 05:17 Lipase 112 Units/L (73-393) 09/05/17 05:17 H. pylori IgG Antibody Negative (NEGATIVE) 09/05/17 05:17 Influenza Type A (PCR) Negative (NEGATIVE) 09/05/17 04:50 Influenza Type B (PCR) Negative (NEGATIVE) 09/05/17 04:50 Streptococcus Screen Negative (NEGATIVE) 09/05/17 04:50 Tissue Pathology To follow 09/05/17 14:23 - Plan (1) Partial small bowel obstruction Status: Acute Plan: on clear liquid for now ,. same Solumedrol. repeat abdominal Xray in am. (2) Acute Crohn's disease with intestinal obstruction Status: Acute
--- NOTE | 2017-09-07 21:54 | PCM.PROG ---
Progress Note - Progress Note for Day of Date: 09/06/17 - Subjective Subjective: WAS ADMITTED FOR SMALL BOWEL OBSTRUCTION AND SEVERE ABDOMINAL PAIN. TODAY, SHE IS ALERT AND ORIENTED, LYING IN BED ON MORNING ROUNDS. SHE CONTINUES WITH COMPLAINTS OF ABDOMINAL CRAMPING AND NAUSEA. ON EXAMINATION, HEART IS REGULAR IN RATE AND RHYTHM. BIALTERAL LUNGS ARE NOTED TO BE CLEAR TO AUSCULTATION. ABDOMEN IS ROUND, SOFT, NOTED WITH MODERATE, DIFFUSE TENDERNESS. NORMAL BOWEL SOUNDS ARE NOTED TO AUSCULTATION. THERE IS NORMAL RANGE OF MOTION NOTED TO ALL EXTREMITIES. HER VITALS THIS MORNING ARE 97.7, 53, 20-96%-136/76. WHITE BLOOD CELL COUNT IS 13.8. CRP HAS INCREASED FROM 6.70 TO 12.30. OTHERWISE, SHE IS HEMODYNAMICALLY STABLE. A KUB WAS OBTAINED THIS MORNING. IT REPORTED INTERVAL IMPROVEMENT WITH REDUCTION IN GASEOUS DISTENTION OF SMALL BOWEL LOOPS NOW CONFINED TO THE RIGHT ABDOMEN. FINDINGS FAVOR A RESOLVING SMALL BOWEL OBSTRUCTION VERSUS ILEUS. WE CONSULTED WITH . HE PLANS TO TAKE PATIENT TO THE OR FOR AN EGD THIS MORNING. WE ARE IN AGREEMENT WITH PLAN. WE WILL CONTINUE WITH CURRENT PLAN OF CARE TODAY. WE PLAN TO FOLLOW UP WITH AM LABS AND CONTINUE TO MONITOR PATIENT. - Past Medical Family Social History Past Med/Fam/Surg Hx: No changes since H&P Allergies: Allergies hydromorphone [From Dilaudid] Adverse Reaction (Verified 09/06/17 17:38) - Review of Systems ROS: No change since H&P - Vital Signs and I&O's Vital Signs: Temperature 98 F Pulse Rate [Right Brachial] 62 Pulse Rate [Left Radial] 53 Pulse Rate 78 Respiratory Rate 20 Blood Pressure [Left Arm] 111/58 Blood Pressure [Right Arm] 115/67 Blood Pressure 137/77 O2 Sat by Pulse Oximetry 97 Intake and Output: Intake & Output 09/05/17 09/06/17 09/07/17 09/08/17 11:59 11:59 11:59 11:59 Intake Total 2360 2080 1680 Output Total 1 4 0 Balance 2359 6 1680 - Physical Exam Oriented: Normal Eyes: Normal. negative: Blurred Vision, Diplopia, Discharge, Pain, Redness, Photophobia, Other Ear: Normal. negative: Right, Left, Swelling, Ecchymosis, Hemotypanum, Abrasion , Laceration Nose: Normal Throat: Normal. negative: Tonsillar Hypertrophy, Red, Exudate, Dry, Other Respiratory: Normal Cardiovascular: Normal : Normal. negative: Dysuria, Hematuria, Frequency, Discharge, Bleeding, , Other Auscultation: Bowel Sounds: Increased Palpation: Normal Tenderness: Diffuse, Moderate. negative: Rebound, Guarding, Rigidity Skin: Normal Musculoskeletal: Normal Psychiatric: Normal Mood Description: Calm Affect: Normal Speech Pattern: Clear, Appropriate - Laboratory and Diagnostics Result Diagrams: 09/07/17 04:44 09/07/17 04:44 Labs: 09/05/17 04:50 Throat Throat Culture - Final Laboratory WBC 16.4 X10^3/uL (3.6-10.0) H 09/07/17 04:44 RBC 3.33 X10^6/uL (3.5-5.4) L 09/07/17 04:44 Hgb 10.4 g/dL (12.0-16.0) L 09/07/17 04:44 Hct 30.6 % (36.0-47.0) L 09/07/17 04:44 MCV 91.7 fL (80.0-100.0) 09/07/17 04:44 MCH 31.1 pg (27.0-34.0) 09/07/17 04:44 MCHC 33.9 g/dL (33.0-35.0) 09/07/17 04:44 RDW 13.8 % (11.6-16.5) 09/07/17 04:44 Plt Count 475 X10^3/uL (150.0-450.0) H 09/07/17 04:44 Plt Count Comment Adequate (ADEQUATE) 09/07/17 04:44 MPV 8.0 fL (7.4-11.0) 09/07/17 04:44 Neut % 91.2 % (42.0-75.0) H 09/07/17 04:44 Lymph % 6.3 % (21.0-51.0) L 09/07/17 04:44 [place] % 2.4 % (0.0-13.0) 09/07/17 04:44 Eos % 0.0 % (0.9-2.9) L 09/07/17 04:44 Baso % 0.1 % (0.2-1.0) L 09/07/17 04:44 Neut # 15.0 x10^3/uL (2.2-4.8) H 09/07/17 04:44 Lymph # 1.0 X10^3/uL (1.3-2.9) L 09/07/17 04:44 [place] # 0.4 x10^3/uL (0.3-0.8) 09/07/17 04:44 Eos # 0.0 x10^3/uL (0.0-0.2) 09/07/17 04:44 Baso # 0.0 X10^3/uL (0.0-0.1) 09/07/17 04:44 Absolute Nucleated RBC 0.0 /100WBC 09/07/17 04:44 Total Counted 100 09/07/17 04:44 Neutrophils % (Manual) 88 % (39-76) H 09/07/17 04:44 Band Neutrophils % 2 % (0-10) 09/07/17 04:44 Lymphocytes % (Manual) 10 % (13-43) L 09/07/17 04:44 Monocytes % (Manual) 1 % (4-9) L 09/06/17 05:42 Plt Morphology Comment Normal (NORMAL) 09/07/17 04:44 RBC Morphology Normal (NORMAL) 09/07/17 04:44 ESR 17 MM/HOUR (0-20) 09/06/17 05:42 Sodium 143 mmol/L (136-145) 09/07/17 04:44 Corrected Sodium 144 mmol/L (136-145) 09/07/17 04:44 Potassium 3.6 mmol/L (3.5-5.1) 09/07/17 04:44 Chloride 112 mmol/L (98-107) H 09/07/17 04:44 Carbon Dioxide 22.1 mmol/L (21-32) 09/07/17 04:44 BUN 13 mg/dL (7-18) 09/07/17 04:44 Creatinine 0.80 mg/dL (0.55-1.02) 09/07/17 04:44 Est GFR (MDRD) Af Amer > 60 (>60) 09/07/17 04:44 Est GFR (MDRD) Non-Af > 60 (>60) 09/07/17 04:44 Glucose 123 mg/dL (65-99) H 09/07/17 04:44 Calcium 8.2 mg/dL (8.5-10.1) L 09/07/17 04:44 Corrected Calcium 9.2 mg/dL (8.5-10.1) 09/07/17 04:44 Total Bilirubin 0.30 mg/dL (0.2-1.0) 09/07/17 04:44 AST 13 Units/L (15-37) L 09/07/17 04:44 ALT 20 Units/L (12-78) 09/07/17 04:44 Alkaline Phosphatase 67 Units/L (46-116) 09/07/17 04:44 C-Reactive Protein 12.30 mg/L (0-3.0) H 09/06/17 05:42 Total Protein 5.7 g/dL (6.4-8.2) L 09/07/17 04:44 Albumin 2.8 g/dL (3.4-5.0) L 09/07/17 04:44 Globulin 2.9 g/dL (2.5-4.5) 09/07/17 04:44 Albumin/Globulin Ratio 1.0 Ratio (1.1-2.1) L 09/07/17 04:44 Amylase 48 Units/L (25-115) 09/05/17 05:17 Lipase 112 Units/L (73-393) 09/05/17 05:17 H. pylori IgG Antibody Negative (NEGATIVE) 09/05/17 05:17 Influenza Type A (PCR) Negative (NEGATIVE) 09/05/17 04:50 Influenza Type B (PCR) Negative (NEGATIVE) 09/05/17 04:50 Streptococcus Screen Negative (NEGATIVE) 09/05/17 04:50 Tissue Pathology To follow 09/05/17 14:23 - Plan (1) Abdominal pain Status: Acute Qualifiers: Abdominal location: epigastric Qualified Code(s): R10.13 - Epigastric pain Plan: demerol 25mg iv q4h prn pain, consult general surgery and GI, continue to monitor (2) Small bowel obstruction Status: Acute Plan: NPO, Consult general surgery and GI, flagyl 500mg iv q8h, zosyn 3.375gm iv tid, continue to monitor
[2017-09-08] MEDS: NS 1000 ML 1,000 ML IV SCH (02:45)
[2017-09-08 05:29] LABS: ALANINE AMINOTRANSFERASE 25 Units/L (12-78); ALBUMIN 2.7 g/dL (3.4-5.0); ALKALINE PHOSPHATASE 54 Units/L (46-116); ASPARTATE AMINO TRANSFERASE 15 Units/L (15-37); BLOOD UREA NITROGEN 15 mg/dL (7-18); CALCIUM 7.7 mg/dL (8.5-10.1); CARBON DIOXIDE 23.1 mmol/L (21-32); CHLORIDE 113 mmol/L (98-107); COR CA(FOR HYPOALB) 8.7 mg/dL (8.5-10.1); CREATININE 1.01 mg/dL (0.55-1.02); SODIUM 143 mmol/L (136-145); TOTAL PROTEIN 5.3 g/dL (6.4-8.2); eGFR BLACK RACES > 60 (>60); eGFR NON BLACK RACES > 60 (>60)
[2017-09-08 05:35] LABS: BASOPHILS % (AUTO) 0.2 % (0.2-1.0); EOSINOPHILS % (AUTO) 0.2 % (0.9-2.9); HEMATOCRIT 29.9 % (36.0-47.0); HEMOGLOBIN 10.1 g/dL (12.0-16.0); LYMPHOCYTES # (AUTO) 3.4 X10^3/uL (1.3-2.9); LYMPHOCYTES % (AUTO) 26.1 % (21.0-51.0); MEAN CORPUSCULAR HEMOGLOBIN 31.4 pg (27.0-34.0); MEAN CORPUSCULAR HGB CONC 33.9 g/dL (33.0-35.0); MEAN CORPUSCULAR VOLUME 92.8 fL (80.0-100.0); MEAN PLATELET VOLUME 7.8 fL (7.4-11.0); MONOCYTES # (AUTO) 0.9 x10^3/uL (0.3-0.8); MONOCYTES % (AUTO) 6.8 % (0.0-13.0); NEUTROPHILS # (AUTO) 8.7 x10^3/uL (2.2-4.8); NEUTROPHILS % (AUTO) 66.7 % (42.0-75.0); PLATELET COUNT 439 X10^3/uL (150.0-450.0); RED BLOOD COUNT 3.23 X10^6/uL (3.5-5.4); RED CELL DISTRIBUTION WIDTH 13.6 % (11.6-16.5)
[2017-09-08] MEDS: ZOSYN VIAL 3.375 GM 3.375 GM in NS 100 ML IV + SPIKE MINIBAG* 100 ML IV SCH (05:45)
[2017-09-08] MEDS: SOLU-Medrol 125 MG VIAL IVP SCH (05:45)
[2017-09-08] MEDS: FLAGYL IV PREMIX 500 MG BAG 500 MG/100 ML BAG IV SCH (05:45)
[2017-09-08] MEDS ORDERED: POTASSIUM CHL 40 MEQ/NS 0.45% 500 ML IV PRN ×2 (06:30→06:38)
[2017-09-08] MEDS ORDERED: K-LYTE EFFERVESCENT PO PRN ×2 (06:30→06:38)
[2017-09-08] MEDS ORDERED: K-RIDER 10 MEQ/NS 100 ML 10 MEQ/100 ML BAG IV PRN ×2 (06:30→06:38)
[2017-09-08] MEDS ORDERED: POTASSIUM CHL 60 MEQ/NS 0.45% 500 ML IV PRN ×2 (06:30→06:38)
[2017-09-08] MEDS ORDERED: MAGNESIUM SULFATE 1 GM/100 mL PREMIX 1 GM/100 ML BAG IV PRN ×2 (06:30→06:38)
[2017-09-08] MEDS ORDERED: MAG-OX TAB PO PRN ×2 (06:30→06:38)
[2017-09-08] MEDS ORDERED: POTASSIUM CHLORIDE LIQ 20 MEQ UDC PO PRN ×2 (06:30→06:38)
--- NOTE | 2017-09-08 07:26 | RAD ---
HISTORY: Abdominal pain, epigastric pain, nausea and vomiting Study: KUB Comparison: 09/07/2017 Findings: Only a small amount gas is present in the small bowel. This appears to be diminishing. Air is present throughout the colon including rectum. No sign of obstruction is seen. There surgical clips from cho lecystectomy. No opaque stones identified. Osseous structures are intact. IMPRESSION: Interval improvement with reduction in small bowel gas. No obstruction is seen. Findings likely repre sent a resolving small bowel ileus. Reported By:
[2017-09-08] MEDS: ZyrTEC TAB 10 MG PO SCH (07:53)
[2017-09-08] MEDS: PEPCID 20 MG IV PREMIX* 20 MG/50 ML BAG IV SCH (07:53)
[2017-09-08] MEDS: PROTONIX TAB 40 MG PO SCH (07:53)
[2017-09-08] MEDS: DEMEROL INJ IVP PRN (07:54)
[2017-09-08] MEDS ORDERED: NORCO 5/325 MG TAB PO PRN (07:58)
[2017-09-08 14:02] VITALS: BP 121/86
--- NOTE | 2017-09-10 20:54 | PCM.PROG ---
Progress Note - Progress Note for Day of Date: 09/07/17 - Subjective Subjective: WAS ADMITTED FOR SMALL BOWEL OBSTRUCTION AND SEVERE ABDOMINAL PAIN. TODAY, SHE IS ALERT AND ORIENTED, LYING IN BED ON MORNING ROUNDS. SHE CONTINUES WITH COMPLAINTS OF ABDOMINAL CRAMPING AND NAUSEA. ON EXAMINATION, HEART IS REGULAR IN RATE AND RHYTHM. BIALTERAL LUNGS ARE NOTED TO BE CLEAR TO AUSCULTATION. ABDOMEN IS ROUND, SOFT, NOTED WITH MODERATE, DIFFUSE TENDERNESS. NORMAL BOWEL SOUNDS ARE NOTED TO AUSCULTATION. THERE IS NORMAL RANGE OF MOTION NOTED TO ALL EXTREMITIES. HER VITALS THIS MORNING ARE 97.7, 53, 20-96%-136/76. WHITE BLOOD CELL COUNT IS 13.8. CRP HAS INCREASED FROM 6.70 TO 12.30. OTHERWISE, SHE IS HEMODYNAMICALLY STABLE. A KUB WAS OBTAINED THIS MORNING. IT REPORTED INTERVAL IMPROVEMENT WITH REDUCTION IN GASEOUS DISTENTION OF SMALL BOWEL LOOPS NOW CONFINED TO THE RIGHT ABDOMEN. FINDINGS FAVOR A RESOLVING SMALL BOWEL OBSTRUCTION VERSUS ILEUS. WE CONSULTED WITH . HE PLANS TO TAKE PATIENT TO THE OR FOR AN EGD THIS MORNING. WE ARE IN AGREEMENT WITH PLAN. WE WILL CONTINUE WITH CURRENT PLAN OF CARE TODAY. WE PLAN TO FOLLOW UP WITH AM LABS AND CONTINUE TO MONITOR PATIENT. - Past Medical Family Social History Past Med/Fam/Surg Hx: No changes since H&P Allergies: Allergies hydromorphone [From Dilaudid] Adverse Reaction (Verified 09/06/17 17:38) - Review of Systems ROS: No change since H&P - Vital Signs and I&O's Vital Signs: Temperature 97.9 F Pulse Rate [Right Brachial] 58 Pulse Rate [Left Radial] 50 Pulse Rate 78 Respiratory Rate 18 Blood Pressure [Left Arm] 121/86 Blood Pressure [Right Arm] 115/67 Blood Pressure 137/77 O2 Sat by Pulse Oximetry 96 Intake and Output: Intake & Output 09/08/17 09/09/17 09/10/17 09/11/17 11:59 11:59 11:59 11:59 Intake Total 3280 Output Total 0 Balance 3280 - Physical Exam Oriented: Normal Eyes: Normal. negative: Blurred Vision, Diplopia, Discharge, Pain, Redness, Photophobia, Other Ear: Normal. negative: Right, Left, Swelling, Ecchymosis, Hemotypanum, Abrasion , Laceration Nose: Normal Throat: Normal. negative: Tonsillar Hypertrophy, Red, Exudate, Dry, Other Respiratory: Normal Cardiovascular: Normal : Normal. negative: Dysuria, Hematuria, Frequency, Discharge, Bleeding, , Other Auscultation: Bowel Sounds: Increased Palpation: Normal Tenderness: Diffuse, Moderate. negative: Rebound, Guarding, Rigidity Skin: Normal Musculoskeletal: Normal Psychiatric: Normal Mood Description: Calm Affect: Normal Speech Pattern: Clear, Appropriate - Laboratory and Diagnostics Result Diagrams: 09/08/17 04:25 09/08/17 04:25 Labs: 09/05/17 04:50 Throat Throat Culture - Final Laboratory WBC 13.0 X10^3/uL (3.6-10.0) H 09/08/17 04:25 RBC 3.23 X10^6/uL (3.5-5.4) L 09/08/17 04:25 Hgb 10.1 g/dL (12.0-16.0) L 09/08/17 04:25 Hct 29.9 % (36.0-47.0) L 09/08/17 04:25 MCV 92.8 fL (80.0-100.0) 09/08/17 04:25 MCH 31.4 pg (27.0-34.0) 09/08/17 04:25 MCHC 33.9 g/dL (33.0-35.0) 09/08/17 04:25 RDW 13.6 % (11.6-16.5) 09/08/17 04:25 Plt Count 439 X10^3/uL (150.0-450.0) 09/08/17 04:25 Plt Count Comment Adequate (ADEQUATE) 09/07/17 04:44 MPV 7.8 fL (7.4-11.0) 09/08/17 04:25 Neut % 66.7 % (42.0-75.0) 09/08/17 04:25 Lymph % 26.1 % (21.0-51.0) 09/08/17 04:25 [place] % 6.8 % (0.0-13.0) 09/08/17 04:25 Eos % 0.2 % (0.9-2.9) L 09/08/17 04:25 Baso % 0.2 % (0.2-1.0) 09/08/17 04:25 Neut # 8.7 x10^3/uL (2.2-4.8) H 09/08/17 04:25 Lymph # 3.4 X10^3/uL (1.3-2.9) H 09/08/17 04:25 [place] # 0.9 x10^3/uL (0.3-0.8) H 09/08/17 04:25 Eos # 0.0 x10^3/uL (0.0-0.2) 09/08/17 04:25 Baso # 0.0 X10^3/uL (0.0-0.1) 09/08/17 04:25 Absolute Nucleated RBC 0.1 /100WBC 09/08/17 04:25 Total Counted 100 09/07/17 04:44 Neutrophils % (Manual) 88 % (39-76) H 09/07/17 04:44 Band Neutrophils % 2 % (0-10) 09/07/17 04:44 Lymphocytes % (Manual) 10 % (13-43) L 09/07/17 04:44 Monocytes % (Manual) 1 % (4-9) L 09/06/17 05:42 Plt Morphology Comment Normal (NORMAL) 09/07/17 04:44 RBC Morphology Normal (NORMAL) 09/07/17 04:44 ESR 17 MM/HOUR (0-20) 09/06/17 05:42 Sodium 143 mmol/L (136-145) 09/08/17 04:25 Corrected Sodium TNP 09/08/17 04:25 Potassium 3.1 mmol/L (3.5-5.1) L 09/08/17 04:25 Chloride 113 mmol/L (98-107) H 09/08/17 04:25 Carbon Dioxide 23.1 mmol/L (21-32) 09/08/17 04:25 BUN 15 mg/dL (7-18) 09/08/17 04:25 Creatinine 1.01 mg/dL (0.55-1.02) 09/08/17 04:25 Est GFR (MDRD) Af Amer > 60 (>60) 09/08/17 04:25 Est GFR (MDRD) Non-Af > 60 (>60) 09/08/17 04:25 Glucose 85 mg/dL (65-99) 09/08/17 04:25 Calcium 7.7 mg/dL (8.5-10.1) L 09/08/17 04:25 Corrected Calcium 8.7 mg/dL (8.5-10.1) 09/08/17 04:25 Magnesium 1.7 mg/dL (1.7-2.9) 09/08/17 04:25 Total Bilirubin 0.20 mg/dL (0.2-1.0) 09/08/17 04:25 AST 15 Units/L (15-37) 09/08/17 04:25 ALT 25 Units/L (12-78) 09/08/17 04:25 Alkaline Phosphatase 54 Units/L (46-116) 09/08/17 04:25 C-Reactive Protein 12.30 mg/L (0-3.0) H 09/06/17 05:42 Total Protein 5.3 g/dL (6.4-8.2) L 09/08/17 04:25 Albumin 2.7 g/dL (3.4-5.0) L 09/08/17 04:25 Globulin 2.6 g/dL (2.5-4.5) 09/08/17 04:25 Albumin/Globulin Ratio 1.0 Ratio (1.1-2.1) L 09/08/17 04:25 Amylase 48 Units/L (25-115) 09/05/17 05:17 Lipase 112 Units/L (73-393) 09/05/17 05:17 H. pylori IgG Antibody Negative (NEGATIVE) 09/05/17 05:17 Influenza Type A (PCR) Negative (NEGATIVE) 09/05/17 04:50 Influenza Type B (PCR) Negative (NEGATIVE) 09/05/17 04:50 Streptococcus Screen Negative (NEGATIVE) 09/05/17 04:50 Tissue Pathology To follow 09/05/17 14:23 - Plan (1) Abdominal pain Status: Acute Qualifiers: Abdominal location: epigastric Qualified Code(s): R10.13 - Epigastric pain Plan: demerol 25mg iv q4h prn pain, consult general surgery and GI, continue to monitor (2) Small bowel obstruction Status: Acute Plan: NPO, Consult general surgery and GI, flagyl 500mg iv q8h, zosyn 3.375gm iv tid, continue to monitor
== END 2017-09-08 14:25 | disposition home or self-care (01) | DRG 389 ==
LOC: ER 04:30 → OBS 07:24 → MED/SURG 09-06 16:35
PROVIDERS: ADMIT Internal Medicine; ATTEND Internal Medicine
PROC: 0DB88ZX Excision of Small Intestine, Via Natural or Artificial Opening Endoscopic, Diagnostic (ICD-10-PCS; 2017-09-05)
PROC: 0DB68ZX Excision of Stomach, Via Natural or Artificial Opening Endoscopic, Diagnostic (ICD-10-PCS; 2017-09-05)
PROC: 0DB58ZX Excision of Esophagus, Via Natural or Artificial Opening Endoscopic, Diagnostic (ICD-10-PCS; principal; 2017-09-05 13:00)
DX: K56.690 Other partial intestinal obstruction (principal); K50.012 Crohn's disease of small intestine with intestinal obstruction; R10.84 Generalized abdominal pain; R11.2 Nausea with vomiting, unspecified; R13.11 Dysphagia, oral phase; R10.13 Epigastric pain; K44.9 Diaphragmatic hernia without obstruction or gangrene; K21.9 Gastro-esophageal reflux disease without esophagitis; K20.8 Other esophagitis; K29.60 Other gastritis without bleeding
CPT/HCPCS: 36415; 74018; 74022; 74176; 80053; 82150; 83690; 83735; 85025; 85652; 86140; 86677; 87070; 87502; 87880; 96365; 96374; 96375; 99283; 99284; A4222; S0028; S0030; A4217; J2001; J2175; J2405; J2543; J2920; J2930; J3490

== ENCOUNTER → 2017-10-14 | Outpatient (CLI) | payer BC ==
[2017-10-14 19:05] LABS: STOOL FOR WBC POSITIVE (NEGATIVE)
[2017-10-14 19:31] LABS: CRYPTOSPORIDIUM PARVUM ANTIGEN NEGATIVE (NEGATIVE); GIARDIA LAMBLIA ANTIGEN NEGATIVE (NEGATIVE)
== END ==
LOC: LAB 17:28
PROVIDERS: ATTEND Internal Medicine Gastroenterology
DX: K59.1 Functional diarrhea (principal); R19.5 Other fecal abnormalities
CPT/HCPCS: 82274; 82705; 83630; 87045; 87328; 87329; 87336; 87427; 87493; 87899

== ENCOUNTER 2017-11-06 07:08 | Day surgery (SDC) | payer BC ==
[2017-11-06] MEDS ORDERED: D5 LR 1000 ML 1,000 ML IV ONE (07:24)
[2017-11-06] MEDS ORDERED: DIPRIVAN VIAL 20 ML ONE (08:05)
[2017-11-06] MEDS ORDERED: DIPRIVAN VIAL 10 ML ONE (08:15)
[2017-11-06 08:46] VITALS: BP 121/70
== END 2017-11-06 08:50 | disposition home or self-care (01) ==
LOC: SURG1 07:08
PROVIDERS: ATTEND Surgery
PROC: 0DBK8ZX Excision of Ascending Colon, Via Natural or Artificial Opening Endoscopic, Diagnostic (ICD-10-PCS; principal; 2017-11-06 08:30)
PROC: 0DBH8ZX Excision of Cecum, Via Natural or Artificial Opening Endoscopic, Diagnostic (ICD-10-PCS; principal; 2017-11-06 08:30)
PROC: 0DBN8ZX Excision of Sigmoid Colon, Via Natural or Artificial Opening Endoscopic, Diagnostic (ICD-10-PCS; principal; 2017-11-06 08:30)
PROC: 0DJD8ZZ Inspection of Lower Intestinal Tract, Via Natural or Artificial Opening Endoscopic (ICD-10-PCS; principal; 2017-11-06 08:30)
DX: R10.84 Generalized abdominal pain (principal); R19.4 Change in bowel habit; K52.89 Other specified noninfective gastroenteritis and colitis; Z87.19 Personal history of other diseases of the digestive system
CPT/HCPCS: A4217; J3490; J7120

== ENCOUNTER → 2017-11-21 | Outpatient (CLI) | payer BC ==
[2017-11-06 08:46] VITALS: BP 121/70
[2017-11-21 16:38] LABS: ALANINE AMINOTRANSFERASE 23 Units/L (12-78); ALBUMIN 3.6 g/dL (3.4-5.0); ALKALINE PHOSPHATASE 91 Units/L (46-116); AMYLASE 53 Units/L (25-115); ASPARTATE AMINO TRANSFERASE 12 Units/L (15-37); BLOOD UREA NITROGEN 14 mg/dL (7-18); CALCIUM 8.6 mg/dL (8.5-10.1); CARBON DIOXIDE 29.2 mmol/L (21-32); CHLORIDE 104 mmol/L (98-107); CREATININE 0.79 mg/dL (0.55-1.02); LIPASE 131 Units/L (73-393); SODIUM 140 mmol/L (136-145); TOTAL PROTEIN 7.4 g/dL (6.4-8.2); eGFR BLACK RACES > 60 (>60); eGFR NON BLACK RACES > 60 (>60)
[2017-11-21 17:08] LABS: BASOPHILS # (AUTO) 0.1 X10^3/uL (0.0-0.1); BASOPHILS % (AUTO) 0.8 % (0.2-1.0); EOSINOPHILS # (AUTO) 0.5 x10^3/uL (0.0-0.2); HEMATOCRIT 35.5 % (36.0-47.0); HEMOGLOBIN 12.1 g/dL (12.0-16.0); LYMPHOCYTES # (AUTO) 2.1 X10^3/uL (1.3-2.9); LYMPHOCYTES % (AUTO) 17.6 % (21.0-51.0); MEAN CORPUSCULAR HEMOGLOBIN 30.1 pg (27.0-34.0); MEAN CORPUSCULAR HGB CONC 34.1 g/dL (33.0-35.0); MEAN CORPUSCULAR VOLUME 88.1 fL (80.0-100.0); MEAN PLATELET VOLUME 7.4 fL (7.4-11.0); MONOCYTES # (AUTO) 0.7 x10^3/uL (0.3-0.8); MONOCYTES % (AUTO) 5.6 % (0.0-13.0); NEUTROPHILS # (AUTO) 8.8 x10^3/uL (2.2-4.8); PLATELET COUNT 449 X10^3/uL (150.0-450.0); RED BLOOD COUNT 4.03 X10^6/uL (3.5-5.4); RED CELL DISTRIBUTION WIDTH 13.4 % (11.6-16.5); WHITE BLOOD COUNT 12.2 X10^3/uL (3.6-10.0)
== END ==
LOC: LAB 15:58
PROVIDERS: ATTEND Surgery
DX: K27.9 Peptic ulcer, site unspecified, unspecified as acute or chronic, without hemorrhage or perforation (principal)
CPT/HCPCS: 36415; 80053; 82150; 83690; 85025